=== PATIENT | female | born 1950 | race Caucasian/White ===

== ENCOUNTER → 2019-01-30 09:38 | Outpatient (CLI) | payer MEDICARE, BC, SELFPAY ==
--- NOTE | 2019-01-30 09:00 | RAD_ITS ---
PROCEDURE: Fluoroscopic guided Hip Injection DATE: January 30, 2019 INDICATION: Female, 68 years old. Left hip pain. PHYSICIAN: Balta Gillis M.D. MEDICATIONS: 80 mg of Kenalog and 3 cc of 0.5% Marcaine. 2% lidocaine administered subcutaneously for local anesthesia. ACCESS SITE: Left hip. NEEDLE: 22-gauge spinal needle. FLUOROSCOPY TIME (if supplied): (1:17) minutes/seconds FINDINGS: The risks, benefits, and alternatives to the procedure were explained to the patient. The specific risks of bleeding, infection, and neurovascular injury were detailed and accepted. Witnessed informed consent was obtained. A 22-gauge spinal needle was positioned under radiographic fluoroscopic localization. Approximately 2 cc of Isovue-300 was instilled for localization purposes. Medication was then injected. The patient tolerated the procedure well without any immediate complications. RAD/Inj/Asp Saul Jt Should/Hip/Knee IMPRESSION: 1. Successful fluoroscopic guided hip injection. Electronically Signed: Balta Gillis, at 13:58 EDT , Service support ,
== END ==
PROVIDERS: Family Provider Family Medicine; PCP Family Medicine; Referring Provider Orthopaedic Surgery; Visit Provider Orthopaedic Surgery
DX: M25.552 Pain in left hip (principal)
CPT/HCPCS: 20610; 77002; Q9967

== ENCOUNTER 2020-08-19 15:22 | Outpatient (RCR) | payer MEDICARE, BC, SELFPAY ==
[2020-08-19] MEDS: COVID-19 VACC, MRNA(PFIZER)/PF 30 MCG/0.3 ML SYRINGE IM (13:28)
[2020-09-09] MEDS: COVID-19 VACC, MRNA(PFIZER)/PF 30 MCG/0.3 ML SYRINGE IM (13:00)
== END 2020-08-19 23:59 ==
LOC: IMMUN 15:22
PROVIDERS: PCP Family Medicine; Visit Provider Family Medicine
DX: Z23 Encounter for immunization (principal)
CPT/HCPCS: 0001A; 0002A; 91300